=== PATIENT | female | born 1955 | race Caucasian/White ===

== ENCOUNTER 2017-10-16 06:09 | Day surgery (SDC) | payer BC ==
[2017-10-16] MEDS ORDERED: LACTATED RINGERS 1,000 ML IV ONE (06:58)
[2017-10-16] MEDS ORDERED: MIDAZOLAM 2 MG/2 ML VIAL IVP ONE (07:42)
[2017-10-16] MEDS ORDERED: fentaNYL 250 MCG/5 ML VIAL IVP ONE (07:42)
--- NOTE | 2017-10-16 07:47 | SURGERY HX AND PHYSICAL(T) ---
Surgical History & Physical - PMH/PSH/Social Hx Does the pt have a hx of MRSA?: No Eyes, Ears, Nose, Throat: None Cardiovascular: High cholesterol Respiratory: Asthma Skin: None Endocrine/Autoimmune: Type 2 diabetes Gastrointestinal: GERD, GI bleed Urinary: None Musculoskeletal: Other Psychiatric: None General: Colonoscopy Eyes Ears Nose Throat (EENT): Tonsil/Adenoidectomy - Home Meds and Allergies Home Medications: Fluticasone Propionate [Flovent Diskus] 100 mcg IH Q6HR PRN 08/03/15 Simvastatin 20 mg PO DAILY 08/03/15 metFORMIN [Glucophage] 500 mg PO BID 08/03/15 Amitriptyline HCl 50 mg PO DAILY 10/13/17 Metoprolol Succinate [Toprol Xl] 50 mg PO DAILY 10/13/17 Omeprazole 20 mg PO BID 10/13/17 Albuterol 10/16/17 Losartan [Cozaar] 1 DAILY 10/16/17 PredniSONE [PredniSONE INTENSOL] 2 BID 10/16/17 Allergies/Adverse Reactions: Allergies Allergy/AdvReac Type Severity Reaction Status Date / Time lisinopril Allergy Severe Edema Verified 10/16/17 07:03 codeine AdvReac Nausea Verified 10/16/17 06:59 - Vital Signs Temperature: 36.6 C Respiratory Rate: 16 O2 Saturation: 96 Weight (kg): 84.5 kg Height: 1.6 m - Patient Review Patient Review: Problems were reviewed with the patient during this visit. Medications were reviewed with the patient during this visit. Allergies were reviewed this patient during this visit. Pertinent Tests Reviewed: All pertitent test for this patient were reviewed. - Assessment & Plan Assessment and Plan: This patient was initially seen on August 02 of this year for the very same reasons on consultation sent to our office by Dr. Theo Wolff. In the past I was unable to complete a colonoscopy because she placed preparation H transanally and a completely gummed up my colonoscope. She continues to be asymptomatic. She denies nausea, vomiting, diarrhea, melena, hematemesis, abdominal pain, unexplained weight loss, or change in the color, character or caliber of her stool. As an aside she has a trip planned to [place] then I believe [facility]. She was evaluated in bed 1 at [facility] child caregiver unit in the presence of her . Current Allergies: CODEINE (Mild) Current Meds: SUPREP BOWEL PREP KIT 17.5-3.13-1.6 GM/180ML ORAL SOLUTION (NA SULFATE-K SULFATE -MG SULF) Take one (6oz) bottle by mouth the PM before colonoscopy & one (6oz) bottle by mouth the AM of colonoscopy as directed by surgical clinic [facility] OMEPRAZOLE 20 MG ORAL TABLET DELAYED RELEASE (OMEPRAZOLE) Take 1 tab by mouth twice daily SIMVASTATIN 20 MG ORAL TABLET (SIMVASTATIN) Take one tablet by mouth at bedtime AMITRIPTYLINE HCL 50 MG ORAL TABLET (AMITRIPTYLINE HCL) Take one tablet by mouth at bedtime LISINOPRIL 20 MG ORAL TABLET (LISINOPRIL) Take one tablet by mouth daily METOPROLOL SUCCINATE ER 50 MG ORAL TABLET EXTENDED RELEASE 24 HOUR (METOPROLOL SUCCINATE) Take one tablet by mouth daily METFORMIN HCL 500 MG ORAL TABLET (METFORMIN HCL) Take one tablet by mouth twice daily Past Medical History: Asthma Diabetes Seizure heartburn Simple review of Centricity, the chart, and discussion with the patient reveals that the information included here is incomplete and possibly incorrect. The problem list should also not be viewed as current, complete or correct. Past Surgical History: Tonsillectomy Ceserean Section Simple review of Centricity, the chart, and discussion with the patient reveals that the information included here is incomplete and possibly incorrect. The problem list should also not be viewed as current, complete or correct. Family History Summary: Mother (biol.) - Has Family History of Other Cancer - kidney CA - Entered On: Mother (biol.) - Has Family History of Lung Cancer - Entered On: 07/29/2015 Father (biol.) - Has Family History of Heart Disease - Entered On: 07/29/2015 Risk Factors: Smoked Tobacco Use: Never smoker Drug use: no Alcohol use: yes Drinks per day: 1-2 week Exercise: yes Times per week: 3 Type of Exercise: biking, walking, work out Review of Systems CONSTITUTIONAL: No weight loss, fever, chills, weakness or fatigue. HEENT: Eyes: No visual loss, blurred vision, double vision or yellow sclerae. Ears, Nose, Throat: No hearing loss, sneezing, congestion, runny nose or sore throat. SKIN: No rash or itching. CARDIOVASCULAR: No chest pain, chest pressure or chest discomfort. No palpitations or edema. RESPIRATORY: No shortness of breath, cough or sputum. GASTROINTESTINAL: See above. GENITOURINARY: No dysuria. Not . NEUROLOGICAL: No headache, dizziness, syncope, paralysis, ataxia, numbness or tingling in the extremities. No change in bowel or bladder control. MUSCULOSKELETAL: No muscle, back pain, joint pain or stiffness. HEMATOLOGIC: No anemia, bleeding or bruising. LYMPHATICS: No enlarged nodes. No history of splenectomy. PSYCHIATRIC: No history of depression or anxiety. ENDOCRINOLOGIC: No reports of sweating, cold or heat intolerance. No polyuria or polydipsia. ALLERGIES: No history of asthma, hives, eczema or rhinitis. NEW history of allergies affecting lips, abdominal wall and shoulder 3 separate times. Physical Exam General: 62 year old female, appears stated age, well developed, well nourished HEENT: Normocephalic, atraumatic, extraocular movement intact, mucous membranes pink and moist, sclera anicteric and not injected, glasses Neck: Supple without pain on palpation, mass or bruit Cardiac: Regular rate and rhythm without rub, gallop, or murmur Chest: Clear to auscultation bilaterally Abdomen: Soft, nontender, normoactive bowel sounds, no hepatomegaly, no splenomegaly Genitourinary: Deferred Rectal: Deferred until colonoscopy Extremities: No gross neurovascular problem, no clubbing, cyanosis or edema Gait: No gross motor deficit Psychiatric: Alert and oriented to person place and time, asks and answers questions appropriately, mood and affect appropriate Impression & Recommendations: Screening colonoscopy with possible biopsies and/or polypectomies. Indications , procedure, alternatives (such as barium enema, Cologuard and even no procedure at all) and risks including but not limited to perforation requiring operative repair, bleeding with its risks, and were fully explained to him. In the office, I richard diagrams explaining the colonic anatomy and the proposed procedure and handed it to him. In the office, conscious sedation was discussed at length with him as were its risks including but not limited to loss of airway, aspiration, respiratory depression, and not enough relief of pain and anxiety and he indicated that he wished to have conscious sedation for his procedure. In the office, I explained that MAC anesthesia is associated with a higher incidence of colon perforation. Review of his history does not reveal any significant systemic disease that would contraindicate use of conscious sedation or MAC anesthesia. All questions were fully answered. Verbal and written consent was obtained. The patient in preparation for his colonoscopy has been n.p.o. and his colon has been mechanically prepped. 20 minutes of [id number] time spent with the patient the majority of which was spent in discussion and in the generation of this document
[2017-10-16 08:57] VITALS: BP 118/70
== END 2017-10-16 06:10 | disposition home or self-care (01) ==
LOC: SDS 06:09
PROVIDERS: ATTEND Surgery
PROC: 0DJD8ZZ Inspection of Lower Intestinal Tract, Via Natural or Artificial Opening Endoscopic (ICD-10-PCS; principal; 2017-10-16 07:30)
DX: Z12.11 Encounter for screening for malignant neoplasm of colon (principal); K64.8 Other hemorrhoids; E11.9 Type 2 diabetes mellitus without complications; K21.9 Gastro-esophageal reflux disease without esophagitis; E78.00 Pure hypercholesterolemia, unspecified; J45.909 Unspecified asthma, uncomplicated
CPT/HCPCS: 45378; J3010; J7120

== ENCOUNTER 2017-11-28 11:40 | Outpatient (CLI) | payer BC ==
--- NOTE | 2017-11-29 09:11 | Mammography Report ---
Procedure Date: 11/28/2017 Accession Number: [id number] / [id number] Procedure: MGN - Screening Mammo Dig Bilat CPT Code: FULL RESULT: EXAM: Screening Mammo Dig Bilat DATE: 11/28/2017 11:57 AM CLINICAL HISTORY: Routine screening TECHNIQUE: Bilateral CC and MLO views were obtained. COMPARISON: 10/13/2015, 10/28/2013, 12/29/2011 and 11/05/2009 FINDINGS: There are scattered fibroglandular densities. There is been no significant interval change. No suspicious masses, clustered microcalcifications, or regions of architectural distortion are identified. IMPRESSION: Negative examination RECOMMENDATION: Routine annual screening unless otherwise clinically indicated. BIRADS CATEGORY 1: Negative STANDARD QUALIFYING STATEMENTS: 1. This examination was reviewed with the aid of Computer-Aided Detection (CAD). 2. A negative or benign imaging report should not delay biopsy if clinically suspicious findings are present. Consider surgical consultation if warrented. More than 5% of cancers are not identified by imaging. 3. Dense breasts may obscure an underlying neoplasm.
== END 2017-11-28 11:41 | disposition home or self-care (01) ==
LOC: DI.N 11:40
PROVIDERS: ATTEND Family Medicine
DX: Z12.31 Encounter for screening mammogram for malignant neoplasm of breast (principal)
CPT/HCPCS: 77067

== ENCOUNTER 2019-01-01 14:44 | Outpatient (CLI) | payer BC ==
--- NOTE | 2019-01-01 16:52 | XRAY Report ---
Reason: WHEEZING Procedure Date: 01/01/2019 Accession Number: [id number] / [id number] Procedure: XRS - Chest 2 View X-Ray CPT Code: 34851 FULL RESULT: EXAM: CHEST RADIOGRAPHY EXAM DATE: 01/01/2019 02:55 PM. CLINICAL HISTORY: Wheezing and cough for 10 days. COMPARISON: XR CHEST PA AND LAT 10/17/2008 4:00 PM. TECHNIQUE: 2 views. FINDINGS: Lungs/Pleura: No focal opacities evident. No pleural effusion. No pneumothorax. Normal volumes. Mediastinum: Heart and mediastinal contours are unremarkable. Other: None. IMPRESSION: No acute cardiopulmonary abnormality. RADIA
== END 2019-01-01 14:45 | disposition home or self-care (01) ==
LOC: DI.S 14:44
PROVIDERS: ATTEND Nurse Practitioner Family
DX: R06.2 Wheezing (principal)
CPT/HCPCS: 71046

== ENCOUNTER 2019-01-07 11:29 | Outpatient (CLI) | payer BC ==
--- NOTE | 2019-01-09 10:11 | Mammography Report ---
Reason: SCREENING MAMMO, SELF REFERRING Z12.31 Procedure Date: 01/07/2019 Accession Number: [id number] / [id number] Procedure: MGS - Screening Mammo Dig Bilat CPT Code: FULL RESULT: EXAM: Screening Mammo Dig Bilat DATE: 01/07/2019 11:45 AM CLINICAL HISTORY: Screening TECHNIQUE: (B) - Bilateral CC and MLO views were obtained. COMPARISON: 11/28/2017, 07/14/2015 PARENCHYMAL PATTERN: (A) - The breasts demonstrate scattered fibroglandular densities bilaterally. FINDINGS: There is a single view breast asymmetry RIGHT breast, middle one third, projecting on nipple line, that may be due to rotational differences in breast position compared to prior exam. Otherwise, there are no suspicious masses, calcifications, or areas of distortion. IMPRESSION: Incomplete examination. BI-RADS category 0. RECOMMENDATION: (ADDMU) - Additional views using both Mammography and Ultrasound recommended. Right breast BI-RADS CATEGORY: (0) - Incomplete Examination - need additional evaluation. STANDARD QUALIFYING STATEMENTS: 1. This examination was not reviewed with the aid of Computer-Aided Detection (CAD). 2. A negative or benign imaging report should not preclude biopsy if clinically suspicious findings are present. 3. Dense breasts may obscure an underlying neoplasm. 4. This examination was reviewed without the aid of 3D breast imaging (tomosynthesis).
== END 2019-01-07 11:30 | disposition home or self-care (01) ==
LOC: DI.S 11:29
DX: Z12.31 Encounter for screening mammogram for malignant neoplasm of breast (principal); R92.8 Other abnormal and inconclusive findings on diagnostic imaging of breast
CPT/HCPCS: 77067

== ENCOUNTER 2019-01-22 12:39 | Outpatient (CLI) | payer BC ==
[~2019-01-22 12:39] MED LIST: ALBUTEROL NEB 2.5 MG/3 ML INH ONE
== END 2019-01-22 12:40 | disposition home or self-care (01) ==
LOC: RT 12:39
PROVIDERS: ATTEND Nurse Practitioner Family
DX: J45.909 Unspecified asthma, uncomplicated (principal); R92.8 Other abnormal and inconclusive findings on diagnostic imaging of breast
CPT/HCPCS: 94010

== ENCOUNTER 2019-01-22 13:52 | Outpatient (CLI) | payer BC ==
--- NOTE | 2019-01-22 15:17 | Mammography Report ---
Reason: ABNORMAL MAMMOGRAM Procedure Date: 01/22/2019 Accession Number: [id number] / [id number] Procedure: ISA - Diag Special Views Dig RT CPT Code: FULL RESULT: EXAM: Diag Special Views Dig RT DATE: 01/22/2019 3:05 PM CLINICAL HISTORY: Diagnostic examination. The patient is recalled from screening for a one view asymmetry in the right breast. TECHNIQUE: (R) - Right right MLO and right ML images are obtained. COMPARISON: 01/07/2019 through 11/27/2006. PARENCHYMAL PATTERN: (A) - The breast(s) demonstrate(s) scattered fibroglandular densities. FINDINGS: The one view asymmetry does not persist and is confirmed as a positional finding. 3-D mammography demonstrates no suspicious findings. There are no suspicious masses, calcifications, or areas of distortion. IMPRESSION: Negative examination. BI-RADS category 1. RECOMMENDATION: (ANNUAL) - Recommend routine annual screening mammography. BI-RADS CATEGORY: (1) - Negative. STANDARD QUALIFYING STATEMENTS: 1. This examination was not reviewed with the aid of Computer-Aided Detection (CAD). 2. A negative or benign imaging report should not preclude biopsy if clinically suspicious findings are present. 3. Dense breasts may obscure an underlying neoplasm. 4. This examination was reviewed with the aid of 3D breast imaging (tomosynthesis).
== END 2019-01-22 13:53 | disposition home or self-care (01) ==
LOC: DI 13:52
PROVIDERS: ATTEND Family Medicine
DX: R92.8 Other abnormal and inconclusive findings on diagnostic imaging of breast (principal)

== ENCOUNTER 2020-01-13 11:57 | Outpatient (CLI) | payer MEDICARE, OTHER ==
--- NOTE | 2020-01-14 08:44 | Mammography Report ---
BILATERAL DIGITAL SCREENING MAMMOGRAM 3D/2D: 01/13/2020 CLINICAL: Routine screening. Comparison is made to exams dated: 01/22/2019 mammogram, 01/07/2019 mammogram, 11/28/2017 mammogram, mammogram, 10/28/2013 mammogram, and 12/29/2011 mammogram - [facility]. Ther e are scattered fibroglandular elements in both breasts. No significant masses, calcifications, or other findings are seen in either breast. There has been no significant interval change. IMPRESSION: NEGATIVE There is no mammographic evidence of malignancy. A 1 year screening mammogram is recommended. This exam was interpreted at Station ID: [id number]. NOTE: For mammograms, a report in lay terms will be sent to the patient. Approximately 15% of breast malignancies will not be visualized mammographically. In the management of a palpable breast mass, a negative mammogram must not discourage biopsy of a clinically suspicious lesion. Electronically Signed By: Lou rivera/rachel:01/13/2020 16:14:14 ACR BI-RADS Category 1: Negative 3341F PARENCHYMAL PATTERN: (A) - The breast(s) demonstrate(s) scattered fibroglandular densities. BI-RADS CATEGORY: (1) - 1 RECOMMENDATION: (ANNUAL) - Recommend routine annual screening mammography. [id number] 1 year screening LATERALITY: (B)
== END 2020-01-13 11:58 | disposition home or self-care (01) ==
LOC: DI 11:57
DX: Z12.31 Encounter for screening mammogram for malignant neoplasm of breast (principal)
CPT/HCPCS: 77063; 77067

== ENCOUNTER 2022-01-13 09:44 | Outpatient (CLI) | payer MEDICARE, OTHER ==
--- NOTE | 2022-01-14 12:16 | Mammography Report ---
BILATERAL DIGITAL SCREENING MAMMOGRAM 3D/2D: 01/13/2022 CLINICAL: Routine screening. Family history of breast cancer. Comparison is made to exams dated: 01/13/2020 mammogram, 01/22/2019 mammogram, 01/07/2019 mammogram, a nd 11/28/2017 mammogram - [facility]. There are scattered areas of fibroglandular density in both breasts (category b / 25%-50% glandular t issue). No significant masses, calcifications, or other findings are seen in either breast. There has been no significant interval change. IMPRESSION: NEGATIVE There is no mammographic evidence of malignancy. A 1 year screening mammogram is recommended. Based on the Tyrer Cuzick model (a risk assessment model) the patients lifetime risk is 8.3% and her 10 year risk is 4.4%. According to the ACR, ACS, and NCCN guidelines, an annual breast MRI exam mahendra g with mammogram is recommended if the patients lifetime risk is 20% or greater. This exam was interpreted at Station ID: [id number]. NOTE: For mammograms, a report in lay terms will be sent to the patient. Approximately 15% of breast malignancies will not be visualized mammographically. In the management of a palpable breast mass, a negative mammogram must not discourage biopsy of a clinically suspicious lesion. Electronically Signed By: Garo frazier/rachel:01/13/2022 12:24:47 ACR BI-RADS Category 1: Negative 3341F PARENCHYMAL PATTERN: (A) - The breast(s) demonstrate(s) scattered fibroglandular densities. BI-RADS CATEGORY: (1) - 1 RECOMMENDATION: (ANNUAL) - Recommend routine annual screening mammography. [id number] 1 year screening LATERALITY: (B)
== END 2022-01-13 09:45 | disposition home or self-care (01) ==
LOC: DI.S 09:44
DX: Z12.31 Encounter for screening mammogram for malignant neoplasm of breast (principal); Z80.3 Family history of malignant neoplasm of breast

== ENCOUNTER 2022-05-05 09:49 | Outpatient (CLI) | payer MEDICARE, OTHER ==
--- NOTE | 2022-05-05 13:41 | Ultrasound Report ---
PROCEDURE: Abdomen Limited INDICATIONS: ALT TECHNIQUE: Real-time focused scanning was performed of the abdomen, with image documentation. COMPARISON: None. FINDINGS: Liver: Measures 12.4 cm in length. Increased in echogenicity. Main portal vein measures 1.2 cm in cinda meter. There is hepatopedal flow. Peak systolic velocity in the portal vein of 37 cm/s. Gallbladder: Gallbladder is nondistended. No stones or sludge. No gallbladder wall thickening. No per icholecystic fluid. Negative sonographic Berger sign. Bile ducts: No intrahepatic biliary ductal dilatation. CBD measures 4 mm. Pancreas: Head and body are within normal limits. Tail was not well seen. Right kidney: Measures 10.5 cm. Cortex 1.2 cm. No hydronephrosis. IVC is patent. Miscellaneous: No free fluid is seen. IMPRESSION: 1. Increased echogenicity of the hepatic parenchyma. This is most commonly seen in hepatic steatosis. Other forms of hepatocellular disease could have a similar appearance. 2. No acute cholecystitis. No gallstones. Reviewed by: Aayush Escobedo MD on 05/05/2022 1:40 PM PST Approved by: Aayush Escobedo MD on 05/05/2022 1:40 PM PST Station ID: [id number]
== END 2022-05-05 09:50 | disposition home or self-care (01) ==
LOC: DI 09:49
PROVIDERS: ATTEND Nurse Practitioner Family
DX: R74.01 Elevation of levels of liver transaminase levels (principal)

== ENCOUNTER 2022-05-05 09:50 | Outpatient (CLI) | payer MEDICARE, OTHER ==
--- NOTE | 2022-05-05 21:22 | DEXA Report ---
PROCEDURE: Dexa Spine and/or Hip INDICATIONS: POST MENOPAUSAL TECHNIQUE: Dual energy x-ray absorptiometry (DXA) was performed on a NexSteppe System. Regions measur ed are the AP Spine, femoral neck, and if needed forearm. COMPARISON: None. FINDINGS: Lumbar Spine: Bone Mineral Density 1.174 g/cm/cm,T score 0.0, normal. Left Femoral Neck: Bone Mineral Density 0.866 g/cm/cm, T score -1.2, osteopenia. Left Hip: Bone Mineral Density 0.948 g/cm/cm,T score -0.5, normal. (T score greater or equal to -1.0: NORMAL) (T score from -1.1 to -2.4: OSTEOPENIA) (T score less than or equal to -2.5 to: OSTEOPOROSIS) Impression: Osteopenia. Patients with diagnosis of osteoporosis or osteopenia should have regular bone mineral density assess ment. For those eligible for Medicare, routine testing is allowed once every 2 years. Testing frequ ency can be increased for patients who have rapidly progressing disease or for those who are receivin g medical therapy to restore bone mass. Reviewed by: Tyrone Rodrigues MD on 05/05/2022 9:21 PM PST Approved by: Tyrone Rodrigues MD on 05/05/2022 9:21 PM PST Station ID: [id number]
== END 2022-05-05 09:51 | disposition home or self-care (01) ==
LOC: DI 09:50
PROVIDERS: ATTEND Nurse Practitioner Family
DX: Z78.0 Asymptomatic menopausal state (principal); M85.88 Other specified disorders of bone density and structure, other site; R74.01 Elevation of levels of liver transaminase levels

== ENCOUNTER 2022-05-30 08:00 | Outpatient (CLI) | payer MEDICARE, OTHER | END 2022-05-30 12:59 | disposition home or self-care (01) | LOC: LAB.S 08:00 | PROVIDERS: ATTEND Physician Assistant Medical | DX: N39.0 Urinary tract infection, site not specified (principal) | CPT/HCPCS: 87086; 87181 ==

== ENCOUNTER 2023-02-13 10:19 | Outpatient (CLI) | payer MEDICARE, OTHER ==
--- NOTE | 2023-02-13 15:41 | XRAY Report ---
PROCEDURE: Hip w/Pelvis 2-3V LT INDICATIONS: GREATER TROCHANTERIC PAIN SYNDROME TECHNIQUE: AP pelvis with lateral view(s) of the left hip(s). COMPARISON: None. FINDINGS: Bones: No fractures or dislocations. No suspicious bony lesions. Soft tissues: No suspicious soft tissue calcifications or masses. IMPRESSION: No fractures or suspicious bone lesions. Reviewed by: Hilda Oh MD on 02/13/2023 3:40 PM PST Approved by: Hilda Oh MD on 02/13/2023 3:40 PM PST Station ID: [id number]
== END 2023-02-13 10:20 | disposition home or self-care (01) ==
LOC: DI.S 10:19
PROVIDERS: ATTEND Registered Nurse
DX: M70.62 Trochanteric bursitis, left hip (principal)

== ENCOUNTER 2023-03-14 10:55 | Outpatient (CLI) | payer MEDICARE, OTHER ==
--- NOTE | 2023-03-15 09:39 | Mammography Report ---
BILATERAL DIGITAL SCREENING MAMMOGRAM 3D/2D: 03/14/2023 CLINICAL: Routine screening. Family history of breast cancer. Comparison is made to exams dated: 01/13/2022 mammogram, 01/13/2020 mammogram, and 01/22/2019 mammogra m - [facility]. There are scattered areas of fibroglandular density in both breasts (category b / 25%-50% glandular t issue). There are benign calcifications in both breasts. No significant masses, calcifications, or other findings are seen in either breast. There has been no significant interval change. IMPRESSION: BENIGN There is no mammographic evidence of malignancy. A 1 year screening mammogram is recommended. Based on the Tyrer Cuzick model (a risk assessment model) the patients lifetime risk is 7.9% and her 10 year risk is 4.4%. According to the ACR, ACS, and NCCN guidelines, an annual breast MRI exam mahendra g with mammogram is recommended if the patients lifetime risk is 20% or greater. This exam was interpreted at Station ID: [id number]. NOTE: For mammograms, a report in lay terms will be sent to the patient. Approximately 15% of breast malignancies will not be visualized mammographically. In the management of a palpable breast mass, a negative mammogram must not discourage biopsy of a clinically suspicious lesion. Electronically Signed By: Hilda horta/rachel:03/14/2023 17:07:10 letter sent: No_Letter ACR BI-RADS Category 2: Benign Finding(s) 3342F PARENCHYMAL PATTERN: (A) - The breast(s) demonstrate(s) scattered fibroglandular densities. BI-RADS CATEGORY: (2) - 2 Mammogram [id number] 1 year screening LATERALITY: (B)
== END 2023-03-14 10:56 | disposition home or self-care (01) ==
LOC: DI.S 10:55
DX: Z12.31 Encounter for screening mammogram for malignant neoplasm of breast (principal); Z80.3 Family history of malignant neoplasm of breast; R92.323 Mammographic fibroglandular density, bilateral breasts

== ENCOUNTER 2023-12-12 08:00 | Outpatient (CLI) | payer MEDICARE, OTHER ==
--- NOTE | 2023-12-12 22:02 | XRAY Report ---
PROCEDURE: Tib/Fib LT INDICATIONS: CONTUSION OF LEFT LOWER LEG TECHNIQUE: 2 views of the tibia and fibula were acquired. COMPARISON: None. FINDINGS: Bones: No fractures or dislocations. Right knee arthroplasty. No suspicious bony lesions. Soft tissues: No suspicious soft tissue calcifications or masses. IMPRESSION: No acute bony abnormality. If pain persists with conservative management, consider repeat x-ray in 10 -14 days or cross-sectional imaging. Reviewed by: Yair Ty MD on 12/12/2023 10:01 PM PDT Approved by: Yair Ty MD on 12/12/2023 10:01 PM PDT Station ID: [id number]
--- NOTE | 2023-12-12 22:03 | XRAY Report ---
PROCEDURE: Toe(s) 2+V RT INDICATIONS: CONTUSION OF RIGHT LESSER TOE TECHNIQUE: 3 views of the fifth toe(s) acquired. COMPARISON: None. FINDINGS: Bones: Mildly displaced comminuted fracture of the head of the fifth proximal phalanx. Diffuse interp halangeal joint degeneration. Hallux valgus angulation of the first MTP with medial bunion formation. No suspicious bony lesions. Soft tissues: No suspicious soft tissue densities. IMPRESSION: Mildly displaced comminuted fractures at the head of the fifth proximal phalanx. Reviewed by: Yair La MD on 12/12/2023 10:02 PM PDT Approved by: Yair La MD on 12/12/2023 10:02 PM PDT Station ID: [id number]
== END 2023-12-12 23:59 | disposition home or self-care (01) ==
LOC: DI.S 08:00
PROVIDERS: ATTEND Emergency Medicine
DX: S92.511A Displaced fracture of proximal phalanx of right lesser toe(s), initial encounter for closed fracture (principal); S80.12XA Contusion of left lower leg, initial encounter; M19.071 Primary osteoarthritis, right ankle and foot